=== PATIENT | male | born 1955 | race Caucasian/White ===

== ENCOUNTER → 2021-04-17 | Outpatient (CLI) | payer OTHER | END | disposition home or self-care (01) | LOC: ROC 07:06 | PROVIDERS: ATTEND Radiology Radiation Oncology | DX: G50.0 Trigeminal neuralgia (principal) | CPT/HCPCS: 99214; G0463 ==

== ENCOUNTER → 2021-05-22 | Outpatient (CLI) | payer OTHER | END | disposition home or self-care (01) | LOC: ROC 08:11 | PROVIDERS: ATTEND Radiology Radiation Oncology | DX: G50.0 Trigeminal neuralgia (principal) | CPT/HCPCS: 99212; G0463 ==